=== PATIENT | male | born 1985 | race Caucasian/White ===

== ENCOUNTER 2023-06-23 03:21 | Emergency (ER) | payer OTHER ==
[2023-06-23] MEDS ORDERED: Ketorolac Tromethamine 30 MG/ML VIAL ONE (03:42)
[2023-06-23] MEDS ORDERED: AMOXicillin 250 MG CAP PO SCH (04:00)
== END 2023-06-23 04:00 | disposition home or self-care (01) ==
LOC: CSHERS 03:21
DX: K08.89 Other specified disorders of teeth and supporting structures (principal)
CPT/HCPCS: 96372; 99282; J1885

== ENCOUNTER 2023-06-28 09:18 | Emergency (ER) | payer OTHER ==
[2023-06-28 10:51] LABS: SARS-CoV-2 NAA Rapid Test Not Detected (NotDetected)
== END 2023-06-28 10:34 | disposition home or self-care (01) ==
LOC: CSHERS 09:18
DX: J11.1 Influenza due to unidentified influenza virus with other respiratory manifestations (principal); F17.290 Nicotine dependence, other tobacco product, uncomplicated
CPT/HCPCS: 99283